=== PATIENT | female | born 1990 | race Two or more races ===

== ENCOUNTER 2021-05-06 22:26 | Emergency (ER) | payer OTHER ==
[~2021-05-06] VITALS: Ht 165.1 cm; Wt 55.3 kg
[~2021-05-06 22:26] MED LIST: CEFACLOR250 MG PO; GILTUSS HC SYR473 ML PO
[2021-05-07] MEDS ORDERED: KETO10TA2 PO ×2 (02:29→02:33)
[2021-05-07] MEDS ORDERED: CIPRO500 MG PO ×2 (02:29→02:33)
[2021-05-07] MEDS ORDERED: NASAL MIST126 ML NASAL (02:33)
== END 2021-05-07 02:34 ==
LOC: ER 22:26
DX: N39.0 Urinary tract infection, site not specified (principal); M54.59 Other low back pain

== ENCOUNTER → 2022-01-03 | Emergency (ER) | payer OTHER ==
[~2022-01-03] MED LIST changes: +CIPRO500 MG PO; +KETO10TA2 PO; +NASAL MIST126 ML NASAL
== END | disposition left against medical advice (07) ==
LOC: ER 16:23
DX: Z53.21 Procedure and treatment not carried out due to patient leaving prior to being seen by health care provider (principal)